=== PATIENT | female | born 1970 | race Caucasian/White ===

== ENCOUNTER 2016-08-15 20:36 | Emergency (ER) | payer OTHER ==
[2016-08-15 22:13] LABS: HEMOGLOBIN 14.4 gm/dl (12.3-15.3); RED BLOOD COUNT 4.75 M/UL (4.00-5.10)
[2016-08-15 22:36] LABS: BUN/CREATININE RATIO 15 (0-10)
== END 2016-08-16 03:30 | disposition home or self-care (01) ==
LOC: ER1 20:36
PROVIDERS: Physician Assistant
DX: R42 Dizziness and giddiness (principal); E03.9 Hypothyroidism, unspecified; Z79.899 Other long term (current) drug therapy
CPT/HCPCS: 36415; 71010; 80053; 80307; 81001; 82550; 82553; 83874; 84439; 84443; 84484; 85025; 93005; 96360; 96361; 99284; G0480; J2405